=== PATIENT | male | born 1990 ===

== ENCOUNTER 2017-02-27 19:15 | Emergency (ER) | payer SELFPAY ==
[2017-02-27] MEDS: Sodium Chloride 0.9% 1,000 ML IV STA (20:05)
[2017-02-27 20:25] LABS: BASO # 0.1 K/uL (0.0-0.2); BASO % 0.8 % (0.0-2.0); EOS % 0.1 % (0.0-4.0); HEMATOCRIT 42.5 % (35.0-51.0); LYMPH # 1.6 K/uL (1.0-4.3); MEAN CELL VOLUME 87.3 fl (80.0-94.0); MEAN CORPUSCULAR HEMOGLOBIN 29.5 pg (27.0-31.0); MEAN CORPUSCULAR HGB CONC 33.8 g/dL (33.0-37.0); MEAN PLATELET VOLUME 6.9 fl (7.2-11.7); MONO # 0.9 K/uL (0.0-0.8); MONO % 13.1 % (0.0-10.0); NEUT # 4.3 K/uL (1.8-7.0); NRBC % 0.1 % (0.0-0.0); RED CELL DISTRIBUTION WIDTH 12.9 % (11.5-14.5); WHITE BLOOD COUNT 6.9 K/uL (4.8-10.8)
[2017-02-27 20:34] LABS: ALB/GLOB RATIO 0.9 (1.0-2.1); ALCOHOL SERUM < 10 mg/dl (0-10); ALKALINE PHOSPHATASE 144 U/L (38-126); ALT/SGPT 55 U/L (21-72); AST/SGOT 35 U/L (17-59); BILIRUBIN,TOTAL 1.3 mg/dl (0.2-1.3); BLOOD UREA NITROGEN 12 mg/dl (9-20); CALCIUM 9.8 mg/dL (8.4-10.2); CARBON DIOXIDE 23 mmol/L (22-30); CHLORIDE 104 mmol/L (98-107); GFR AFRICAN-AMERICAN > 60; GLUCOSE,RANDOM 111 mg/dL (75-110); MAGNESIUM 2.2 MG/DL (1.6-2.3); PHOSPHOROUS 3.9 mg/dl (2.5-4.5); POTASSIUM 3.8 MMOL/L (3.6-5.0); SODIUM 140 mmol/l (132-148); TOTAL PROTEIN 9.3 G/DL (6.3-8.2)
--- NOTE | 2017-02-27 20:52 | ED PDOC ---
HPI: Psych/Substance Abuse Time Seen by Provider: 02/27/17 19:50 Chief Complaint (Nursing): Psychiatric Evaluation Chief Complaint (Provider): Psychiatric Evaluation History Per: Patient History/Exam Limitations: no limitations Onset/Duration Of Symptoms: Days (2x weeks) Current Symptoms Are (Timing): Still Present Suicide/Self Injury Attempted (Context): None Modifying Factor(s): None Severity: Moderate Associated Symptoms: Depression, Other (psychosis). denies: Suicidal Thoughts, Suicidal Plan Additional Complaint(s): 26 year old male with a pertinent medical history of HIV (has not taken medication for 6x months) presents to the ED with complaints of depression ongoing for 2x weeks. He reports that it started after he broke up with his boyfriend. He reports hearing voices, having difficulty sleeping, no appetite for the past 2x weeks, and today he felt weak and dehydrated which is what promptd his ED visit today. He denies having suicidal ideations, homicidal ideations, and visual hallucinations. PMD: Patient does not have a PMD. Past Medical History Reviewed: Historical Data, Nursing Documentation, Vital Signs Vital Signs: Last Vital Signs Temp 98.0 F 02/27/17 19:23 Pulse 133 H 02/27/17 19:23 Resp 18 02/27/17 19:23 BP 135/83 02/27/17 19:23 Pulse Ox 100 02/27/17 19:23 - Medical History PMH: HIV - Surgical History Surgical History: No Surg Hx - Family History Family History: States: No Known Family Hx - Social History Current smoker - smoking cessation education provided: No Alcohol: Social Drugs: Denies - Allergies Allergies/Adverse Reactions: Allergies Allergy/AdvReac Type Severity Reaction Status Date / Time No Known Allergies Allergy Verified 02/27/17 19:29 Review of Systems ROS Statement: Except As Marked, All Systems Reviewed And Found Negative Constitutional: Positive for: Weakness, Malaise (fatigue), Other (no appetite. excessive thirst) Cardiovascular: Positive for: Light Headedness Psych: Positive for: Depression, Psychosis. Negative for: Suicidal ideation ( homicidal ideation) Physical Exam - Reviewed Nursing Documentation Reviewed: Yes Vital Signs Reviewed: Yes - Physical Exam Appears: Positive for: Well, Non-toxic (slim body habitus), No Acute Distress Head Exam: Positive for: ATRAUMATIC, NORMOCEPHALIC Skin: Positive for: Normal Color, Warm, Dry Eye Exam: Positive for: EOMI, PERRL, Conjunctival injection ENT: Positive for: Pharynx Is (clear), Other (dry mucous membranes) Cardiovascular/Chest: Positive for: Regular Rate, Rhythm Respiratory: Positive for: Normal Breath Sounds. Negative for: Respiratory Distress Gastrointestinal/Abdominal: Positive for: Soft, Tenderness (mild diffuse tenderness to palpation, abdomen is otherwise soft). Negative for: Mass, Distended, Guarding, Rebound Neurologic/Psych: Positive for: Alert, Oriented (3x), Mood/Affect (depressed mood). Negative for: Motor/Sensory Deficits - Laboratory Results Result Diagrams: 02/27/17 20:20 02/27/17 20:20 - ECG O2 Sat by Pulse Oximetry: 100 (RA) Pulse Ox Interpretation: Normal Medical Decision Making Medical Decision Makin:50 Initial impression: 26 year old male with depression and dehydration. Initial plan: * urine * blood work * chemistry * IV NS 1,000ml IV 1,000mls/hr * reevaluation Urine dip demonstrated ketones. Bloodwork with no emergently significant abnormalities. Evaluated by CW who d/w psychiatrist. Pt stable for dc with outpatient follow up. Scribe Attestation: Documented by Toshia Weaver, acting as a scribe for Angela López MD. Provider Scribe Attestation: All medical record entries made by the Scribe were at my direction and personally dictated by me. I have reviewed the chart and agree that the record accurately reflects my personal performance of the history, physical exam, medical decision making, and the department course for this patient. I have also personally directed, reviewed, and agree with the discharge instructions and disposition. Disposition - Clinical Impression Clinical Impression: Adjustment disorder, Dehydration Counseled Patient/Family Regarding: Studies Performed, Diagnosis, Need For Followup - Disposition Referrals: [facility] [Outside] [facility] [Outside] Disposition: Routine/Home Disposition Time: 21:39 Condition: GOOD Additional Instructions: DRINK PLENTY OF HYDRATING FLUIDS AND REST FOLLOW UP WITH [facility] WITHIN A WEEK. YOU NEED TO RESTART MANAGEMENT OF YOUR VIRAL ILLNESS. FOLLOW UP WITH [facility] INSTRUCTED BY [employer] AIDE Instructions: Dehydration (ED), Stress (ED) Forms: [employer] [facility] (Japanese)
[2017-02-27 21:45] VITALS: BP 130/69; PULSE 104; RESP 16; TEMP 98.4
[2017-02-27 21:50] VITALS: O2SAT 100
== END 2017-02-27 22:05 | disposition home or self-care (01) ==
LOC: H.ER 19:15
DX: E86.0 Dehydration (principal); F43.20 Adjustment disorder, unspecified
CPT/HCPCS: 80053; 83735; 84100; 85025; 99284; G0480; J7040